=== PATIENT | female | born 1995 | race Caucasian/White ===

== ENCOUNTER 2017-07-24 04:42 | Inpatient (IN) | payer OTHER ==
[2017-07-24 05:18] VITALS: BMI 33.6
[2017-07-24] MEDS ORDERED: Meperidine HCl/PF 25 MG/ML VIAL IM/IV PRN (05:40)
[2017-07-24] MEDS ORDERED: Ondansetron HCl/PF 4 MG/2 ML Vial IVP PRN ×3 (05:40→18:21)
[2017-07-24] MEDS ORDERED: Promethazine HCl 25 MG/ML VIAL IM PRN ×2 (05:40→06:53)
[2017-07-24] MEDS ORDERED: LR / Pitocin 40 units/1000 ml 1,000 ML IV PRN (05:40)
[2017-07-24] MEDS ORDERED: Lidocaine 1% (PF) 30 ML VIAL SC PRN (05:40)
[2017-07-24] MEDS: Lactated Ringer's 1,000 ML IV SCH ×2 (05:55→10:02)
--- NOTE | 2017-07-24 05:55 | PDOC.LDHP ---
Labor and Delivery H&P Chief complaint: contractions HPI: 21 yo WF EDC= 07/28/17 presents c/o regular UCs since early AM. Current gestational age (weeks): 39 Due date: 07/28/17 Dating criteria: last menstrual period Grav: 3 Para: 1 Current complications: none Abnormal US findings: No Past Medical History: h/o drug use Current medications: pre- vitamins Previous surgical history: other (broken arm) Allergies/Adverse Reactions: Allergies Allergy/AdvReac Type Severity Reaction Status Date / Time rifampin Allergy Intermediate Swollen Verified 07/24/17 05:09 Lips Social history: tobacco use - Physical Exam Vital signs reviewed and normal: yes General: NAD Heart: RRR Lungs: CTAB Abdomen: gravid Extremeties: trace edema FHT: category 1 [place] contractions every: q 2-4 mins - Vaginal Exam cm dilated: 4 Effacement: 90% Station: -1 - OB Labs Blood type: O RH: positive Antibody Screen: negative HIV: negative RPR: negative HEPSAg: negative 1 hour GCT: negative GBS: negative Rubella: non-immune - Assessment L&D Assessment: term patient in labor - Plan Plan: admit to L&D, anesthesia consult for pain management
[2017-07-24] MEDS ORDERED: Bupivacaine 0.5% 20 ML, Fentanyl 400 MCG in Sodium Chloride 0.9% 72 ML EPIDURAL SCH (06:15)
[2017-07-24 06:16] LABS: Mean Corpuscular HGB CONC 32.2 g/dL (32.0-36.0); Mean Corpuscular Hemoglobin 28.9 pg (27.0-31.0); Mean Corpuscular Volume 89.8 fl (81.0-99.0); Mean Platelet Volume 7.9 fL (7.4-10.4); Platelet Count 304 thou/uL (130-400); RBC Distribution Width 12.6 % (11.5-14.5); Red Blood Cell (RBC) Count 4.15 mill/uL (4.20-5.40); White Blood Cell (WBC) Count 16.9 thou/uL (4.8-10.8)
[2017-07-24 06:49] LABS: Syphilis Antibody Nonreactive (Nonreactive); Syphilis Antibody Index 0.02 S/CO (<1.00 Non-Reactive)
[2017-07-24 06:50] LABS: HBSAg Index 0.24 S/CO (0-0.99); Hep B Surf Ag Non-Reactive S/CO (NonReactive)
[2017-07-24] MEDS ORDERED: ePHEDrine/0.9% NaCl/PF SYRINGE 50 mg/10 ml SLOW IVP PRN (06:53)
[2017-07-24] MEDS ORDERED: Eucerin (Mineral Oil/Petrolatum,White) 30 gm Jar TOP PRN (06:53)
[2017-07-24] MEDS ORDERED: Lactated Ringer's 500 ML IV PRN (06:53)
[2017-07-24] MEDS ORDERED: Naloxone HCl 0.4 mg/ml Vial IVP PRN ×2 (06:53)
[2017-07-24] MEDS ORDERED: Acetaminophen 325 MG TAB PO PRN (06:53)
[2017-07-24] MEDS ORDERED: diphenhydrAMINE 50 MG/ML VIAL IVP PRN (06:53)
[2017-07-24] MEDS ORDERED: Fentanyl 4mcg/Marcaine 0.1% Cassette 100 ML EPIDURAL SCH (07:00)
[2017-07-24] MEDS ORDERED: Communication Order-Pharmacy FS SCH (07:00)
[2017-07-24] MEDS ORDERED: Bupivacaine 0.25% HCL 30 ML VIAL ONE (12:00)
[2017-07-24] MEDS ORDERED: Bisacodyl 10 MG SUPP PR PRN (18:21)
[2017-07-24] MEDS ORDERED: diphenhydrAMINE 25 MG CAP PO PRN (18:21)
[2017-07-24] MEDS ORDERED: Preparation H Ointment 28 GM TUBE PR PRN (18:21)
[2017-07-24] MEDS ORDERED: Milk Of Magnesia 30 ML UDCUP PO PRN (18:21)
[2017-07-24] MEDS ORDERED: Adacel (T-DAP) 0.5 ML VIAL IM ONE (18:21)
[2017-07-24] MEDS ORDERED: Lanolin Ointment 7 GM TUBE TOP PRN (18:21)
[2017-07-24] MEDS ORDERED: LR / Pitocin 40 units/1000 ml 1,000 ML IV SCH (18:30)
--- NOTE | 2017-07-24 21:38 | OP ---
DELIVERY NOTE The patient delivered a male infant on 07/24/2017 at 1449 hours by an uncomplicated term spontaneous vaginal delivery at 39 weeks and 3 days. Apgars were 8 and 9 at 1 and 5 minutes, with a weight of 3564 grams. The placenta delivered spontaneously followed by Pitocin infusion. There were super ficial labial lacerations bilaterally that were spontaneously hemostatic and unrepaired. Estimated b lood loss was [address] Ascencio is the delivering physician. Mother and baby were stable in the i mmediate .
[2017-07-24] MEDS: Docusate Calcium (SURFAK) 240 MG CAP PO SCH (21:50)
[2017-07-24] MEDS: Ibuprofen 800 MG TAB PO SCH (21:50)
[2017-07-25 06:03] LABS: Hemoglobin 11.3 g/dL (12.0-16.0); Mean Corpuscular HGB CONC 33.1 g/dL (32.0-36.0); Mean Corpuscular Hemoglobin 30.2 pg (27.0-31.0); Mean Corpuscular Volume 91.2 fl (81.0-99.0); Mean Platelet Volume 7.7 fL (7.4-10.4); Platelet Count 251 thou/uL (130-400); RBC Distribution Width 12.7 % (11.5-14.5); Red Blood Cell (RBC) Count 3.74 mill/uL (4.20-5.40); White Blood Cell (WBC) Count 13.6 thou/uL (4.8-10.8)
[2017-07-25] MEDS: Ibuprofen 800 MG TAB PO SCH ×2 (06:10→15:06)
[2017-07-25] MEDS: Docusate Calcium (SURFAK) 240 MG CAP PO SCH (08:27)
[2017-07-25] MEDS: Ferrous Sulfate 325 MG TAB PO SCH ×2 (08:29→09:31)
[2017-07-25 12:58] VITALS: BP 113/66; TEMP 97.8
--- NOTE | 2017-07-25 14:24 | PDOC.EVN ---
Event Note - Event Note Event Note: @1425: DISCHARGE NOTE DISCHARGE HELD FOR TODAY I was just called by the patient's nurse on . This patient was seen this AM by Dr Ascencio and was cleared for discharge today. I was notified just now that she requests to stay due to "legal issues" with the baby's adoption process. I have held the discharge for now and we can plan to discharge home tomorrow AM as possible. No acute needs at this time.
--- NOTE | 2017-07-25 14:32 | DIS ---
DATE OF ADMISSION: 07/24/2017 DATE OF DISCHARGE: 07/25/2017 ADMITTING DIAGNOSIS: Labor at term. DISCHARGE DIAGNOSIS: Labor at term. PROCEDURE: Term spontaneous vaginal delivery. HOSPITAL COURSE: The patient is a 21-year-old female, who presented to labor and delivery in active labor and was admitted to the hospital. She subsequently had an uncomplicated term spontaneous vagin al delivery and subsequently transferred to for continued care. Today is day # 1. The patient reports she is tolerating p.o., voiding on her own, having decreased lochia and good pain control. The patient is interested in discharging home today. PHYSICAL EXAMINATION: VITAL SIGNS: Her blood pressure this morning is 110/53, temperature 98.7, pulse of 68, respiratory r ate of 20, satting 97% on room air. GENERAL: She appears to be in no acute distress. She is alert and oriented, cooperative and pleasan t to interact with. ABDOMEN: Soft. Fundus is firm. EXTREMITIES: Nontender, nonedematous. LABORATORY DATA: Her hemoglobin is 11.3, hematocrit 34.1, platelets of 251,000. DISCHARGE INSTRUCTIONS: The patient is being discharged to home. She has instructions to follow up with Dr. Ha in 6 weeks for routine care. She has instructions to seek medical attenti on sooner if she experiences fever, increasing pain or bleeding. Of note, the patient's child is up for adoption and has the adoptive family have resumed care. The patient is being discharged home wit h ibuprofen 800 mg #20.
--- NOTE | 2017-07-25 14:48 | PDOC.EVN ---
Event Note - Event Note Event Note: @1444: Patient now states legal issue has resolved and would like to be discharged now. OK to discharge, as per Dr Ascencio order given earier today.
== END 2017-07-25 15:02 | disposition home or self-care (01) | DRG 775 ==
LOC: L&D/OP 04:42 → L&D 05:29 → 3SW 17:49
PROVIDERS: ADMIT Obstetrics & Gynecology; ATTEND Obstetrics & Gynecology
PROC: 10E0XZZ Delivery of Products of Conception, External Approach (ICD-10-PCS; principal; 2017-07-24)
DX: O70.0 First degree perineal laceration during delivery (principal); Z37.0 Single live birth; Z3A.39 39 weeks gestation of pregnancy
CPT/HCPCS: 36415; 51702; 85027; 86780; 87340; 99285; J3010; J3490; J7050; S0020

== ENCOUNTER 2024-12-22 11:11 | Emergency (ER) | payer OTHER ==
[2024-12-22 14:51] LABS: BHCG - Serum Negative (NEGATIVE); Pregs Control Background? CLEAR/WHITE (CLR/WHITE); Pregs Control Bar Appear? YES (CONTROL BAR)
== END 2024-12-22 15:40 | disposition home or self-care (01) ==
LOC: ERS 11:11
DX: M51.24 Other intervertebral disc displacement, thoracic region (principal)
CPT/HCPCS: 36415; 72128; 84703

== ENCOUNTER 2025-01-03 20:17 | Emergency (ER) | payer OTHER ==
[2025-01-03] MEDS ORDERED: Dexamethasone 10 MG/ML VIAL PO SCH (21:30)
[2025-01-03] MEDS ORDERED: HYDROcodone/Acetaminophen 5/325 mg Tablet ONE (21:30)
[2025-01-03] MEDS ORDERED: HYDROcodone/Acetaminophen 5/325 mg Tablet PO SCH (21:30)
[2025-01-03] MEDS ORDERED: Dexamethasone 10 MG/ML VIAL ONE (21:30)
[2025-01-03 22:18] LABS: Pregnancy Test - Urine (BHCG) Negative (Negative); Pregu Control Background? CLEAR/WHITE (CLR/WHITE); Pregu Control Bar Appear? YES (CONTROL BAR)
== END 2025-01-03 23:28 | disposition home or self-care (01) ==
LOC: ERS 20:17
DX: M54.41 Lumbago with sciatica, right side (principal)
CPT/HCPCS: 72128; 72131; 81025; J1100

== ENCOUNTER 2025-02-26 00:22 | Emergency (ER) | payer OTHER ==
[2025-02-26] MEDS ORDERED: Dexamethasone 10 MG/ML VIAL ONE (03:00)
== END 2025-02-26 03:24 | disposition home or self-care (01) ==
LOC: ERS 00:22
DX: R20.2 Paresthesia of skin (principal); R20.0 Anesthesia of skin
CPT/HCPCS: 99283; J1100

== ENCOUNTER 2025-04-20 04:39 | Emergency (ER) | payer OTHER ==
[2025-04-20 05:38] LABS: #Basophils 0.10 10x3/uL (0.0-0.2); #Eosinophils 0.17 10x3/uL (0.0-0.7); #Monocytes 0.62 10x3/uL (0.11-0.59); #Neutrophils 2.95 10x3/uL (1.40-6.50); %Basophils 1.7 % (0.0-1.0); %Eosinophils 2.9 % (0.0-10.0); %Lymphocytes 35.3 % (21.0-51.0); %Monocytes 10.4 % (0.0-10.0); %Neutrophils 49.5 % (42.0-75.0); Hematocrit 37.4 % (36.0-47.0); Hemoglobin 12.6 g/dL (12.0-16.0); Mean Corpuscular Hemoglobin 29.2 pg (27.0-31.0); Mean Corpuscular Volume 86.6 fL (78.0-98.0); Platelet Count 248 10x3/uL (130-400); Red Blood Cell (RBC) Count 4.32 mill/uL (4.20-5.40); White Blood Cell (WBC) Count 5.95 10x3/uL (4.8-10.8)
[2025-04-20 05:54] LABS: BHCG - Serum Negative (NEGATIVE); Pregs Control Background? CLEAR/WHITE (CLR/WHITE); Pregs Control Bar Appear? YES (CONTROL BAR)
[2025-04-20 05:56] LABS: ALT (SGPT) 14 U/L (Less than 34); AST (SGOT) 25 U/L (11-34); Albumin 4.4 g/dL (3.1-4.5); Alkaline Phosphatase 52 U/L (40-110); Anion Gap 12 mmol/L (10-20); BUN (Urea Nitrogen) 14 mg/dL (7.0-18.7); Bilirubin, Total 0.3 mg/dL (0.3-1.2); Calc. Creatinine Clearance 0 mL/min (70-130); Calcium 9.3 mg/dL (7.8-10.44); Carbon Dioxide 23 mmol/L (22-29); Chloride 109 mmol/L (98-107); Globulin 2.4 g/dL (2.4-3.5); Glucose 87 mg/dL (70-105); Magnesium 1.9 mg/dL (1.6-2.6); Potassium 4.0 mmol/L (3.5-5.1); Sodium 140 mmol/L (136-145)
== END 2025-04-20 07:15 | disposition home or self-care (01) ==
LOC: ERS 04:39
DX: R07.89 Other chest pain (principal); F41.9 Anxiety disorder, unspecified
CPT/HCPCS: 71045; 80053; 83735; 84443; 84484; 84703; 85025; 93005

== ENCOUNTER → 2025-04-20 | Emergency (ER) | payer OTHER ==
[~2025-04-20] MED LIST: ALPRAZolam 0.25 MG TAB ONE
== END ==
LOC: ERS 19:06
DX: F41.9 Anxiety disorder, unspecified (principal)
CPT/HCPCS: 93005; 99283

== ENCOUNTER 2025-05-04 21:17 | Emergency (ER) | payer OTHER | END 2025-05-04 22:45 | disposition home or self-care (01) | LOC: ERS 21:17 | DX: R50.9 Fever, unspecified (principal); J02.9 Acute pharyngitis, unspecified; M79.10 Myalgia, unspecified site; R11.10 Vomiting, unspecified; R19.7 Diarrhea, unspecified | CPT/HCPCS: 87428; 99283 ==